=== PATIENT | female | born 1975 | race Hispanic/Latino ===

== ENCOUNTER → 2017-04-22 | Outpatient (CLI) | payer OTHER ==
[~2017-04-22] MED LIST: ACET-66 PO; IBUP-2077 PO; METF500T6 PO; TRAN650T5 PO
== END | disposition home or self-care (01) ==
LOC: RAH 11:20
PROVIDERS: ATTEND Obstetrics & Gynecology
DX: D39.11 Neoplasm of uncertain behavior of right ovary (principal); N83.201 Unspecified ovarian cyst, right side
CPT/HCPCS: 76856

== ENCOUNTER 2017-04-24 10:24 | Inpatient (IN) | payer OTHER ==
[2017-04-24] VITALS (21 sets, daily range): BP systolic 92–126; BP diastolic 51–73
[~2017-04-24] VITALS: Ht 165.1 cm; Wt 84.4 kg
[~2017-04-24 10:24] MED LIST changes: -ACET-66 PO
[2017-04-24] MEDS ORDERED: CEFAZOLIN SODIUM 1 GM VIAL ONE (10:45)
[2017-04-24] MEDS ORDERED: CEFAZOLIN 2GM / 50 ML 50 ML IV SCH (11:00)
[2017-04-24] MEDS: CALDOLOR 800MG+NS 250ML 250 ML IV SCH ×3 (11:00→20:17)
[2017-04-24] MEDS: WATER FOR INJECTION,STERILE 20 ML VIAL IJ SCH ×2 (11:15→18:40)
[2017-04-24] MEDS ORDERED: MORPHINE SULFATE 2 MG/ML 1ML SYG IVP ONE (11:15)
[2017-04-24] MEDS: CEFAZOLIN SODIUM 1 GM VIAL IVP SCH ×3 (11:15→18:38)
[2017-04-24 11:20] LABS: HEMATOCRIT 40.3 % (36-48); MEAN CORPUSCULAR HEMOGLOBIN 29.7 pg (27.0-33.0); MEAN CORPUSCULAR HGB CONC 34.1 g/dL (32.0-36.0); MEAN CORPUSCULAR VOLUME 86.9 fL (79-99); PLATELET COUNT (AUTO) 221 K/uL (130-400); RED BLOOD CELL COUNT(AUTO) 4.64 MIL/uL (4.00-5.50); RED CELL DISTRIBUTION WIDTH 13.7 % (11.0-15.5); WHITE BLOOD COUNT (AUTO) 11.3 K/uL (4.8-10.8)
[2017-04-24] MEDS ORDERED: LACTATED RINGERS 1000ML 1,000 ML IV ONE (11:43)
[2017-04-24] MEDS ORDERED: NEOSTIGMINE 5MG/5ML SYR IV ONE (11:49)
[2017-04-24] MEDS ORDERED: LIDOCAINE HCL 2% JELLY 5 ML ONE (11:49)
[2017-04-24] MEDS ORDERED: ROCURONIUM BROMIDE 10MG/1ML 5ML VL ONE (11:49)
[2017-04-24] MEDS ORDERED: PROPOFOL 10 MG/ML 20ML VIAL IV ONE ×2 (11:49)
[2017-04-24] MEDS ORDERED: GLYCOPYRROLATE 0.2 MG/ML 5 ML VIAL ONE (11:49)
[2017-04-24] MEDS ORDERED: LIDOCAINE HCL 4% LTA SOL 4 ML VIAL ONE (11:49)
[2017-04-24] MEDS ORDERED: LIDOCAINE PF 2% 5ML ABBOJECT ONE (11:49)
[2017-04-24] MEDS ORDERED: DEXAMETHASONE SOD PHOSPHATE 10MG/ML 1ML VIAL ONE (11:49)
[2017-04-24] MEDS ORDERED: PHENYLEPHRINE HCL 10 MG/ML 1ML VIAL IV ONE (11:49)
[2017-04-24] MEDS ORDERED: LIDOCAINE HCL-MPF 1% 5ML AMP IJ ONE (11:49)
[2017-04-24] MEDS ORDERED: ONDANSETRON HCL 4 MG/2 ML VIAL ONE (11:49)
[2017-04-24] MEDS ORDERED: FENTANYL CITRATE PF 50 MCG/1 ML 5ML AMP IV ONE (11:50)
[2017-04-24] MEDS ORDERED: MIDAZOLAM HCL 1 MG/ML 2ML VIAL ONE (11:50)
[2017-04-24] MEDS ORDERED: OCTYL 2-CYANOACRYLATE 1 EACH TP ONE (13:08)
[2017-04-24] MEDS ORDERED: ACET-66 PO (14:05)
[2017-04-24] MEDS ORDERED: ONDANSETRON HCL 4 MG/2 ML VIAL IVP PRN (15:15)
[2017-04-24] MEDS: HYDROCODONE/ACETAMINOPHEN 5/325 MG TAB PO PRN (16:54)
[2017-04-24] MEDS ORDERED: HYDROCODONE/ACETAMINOPHEN 5/325 MG TAB PO PRN (17:00)
[2017-04-24] MEDS ORDERED: MEPERIDINE-PF 50 MG/ML SYG IM PRN (17:00)
[2017-04-24] MEDS ORDERED: PROMETHAZINE HCL 25 MG/ML 1ML AMPULE IM PRN (17:00)
[2017-04-24] MEDS ORDERED: SODIUM CHLORIDE 0.9% 1000ML 1,000 ML IV SCH (17:30)
[2017-04-24] MEDS: METFORMIN HCL 500 MG TABLET PO SCH (18:28)
[2017-04-25 03:35] VITALS: BP 129/67
[2017-04-25] MEDS: HYDROCODONE/ACETAMINOPHEN 5/325 MG TAB PO PRN (03:37)
[2017-04-25] MEDS: CALDOLOR 800MG+NS 250ML 250 ML IV SCH (04:14)
[2017-04-25 07:21] VITALS: BP 107/47
[2017-04-25] MEDS: METFORMIN HCL 500 MG TABLET PO SCH (08:29)
== END 2017-04-25 10:40 | disposition home or self-care (01) | DRG 743 ==
LOC: WSH 10:41
PROVIDERS: ADMIT Obstetrics & Gynecology; ATTEND Obstetrics & Gynecology
PROC: 0UT04ZZ Resection of Right Ovary, Percutaneous Endoscopic Approach (ICD-10-PCS; principal; 2017-04-24 12:31)
PROC: 0UT54ZZ Resection of Right Fallopian Tube, Percutaneous Endoscopic Approach (ICD-10-PCS; 2017-04-24 12:31)
DX: N83.201 Unspecified ovarian cyst, right side (principal); N83.8 Other noninflammatory disorders of ovary, fallopian tube and broad ligament
CPT/HCPCS: 36415; 81025; 82948; 85027; 86850; 86900; 86901; 88305; A4344; J0690; J1100; J1741; J2001; J2250; J2370; J2405; J2704; J2710; J3010; J3490; J7030; J7120

== ENCOUNTER → 2017-07-25 | Outpatient (CLI) | payer OTHER ==
[~2017-07-25] MED LIST changes: +ACET-66 PO; -IBUP-2077 PO; -TRAN650T5 PO
[2017-07-25 08:32] LABS: BASOPHILS % (AUTO) 0.5 % (0.0-5.0); EOSINOPHILS % (AUTO) 2.4 % (0.0-8.0); HEMATOCRIT 38.3 % (36-48); LYMPHOCYTES % (AUTO) 54.4 % (21.0-51.0); MEAN CORPUSCULAR HEMOGLOBIN 30.3 pg (27.0-33.0); MEAN CORPUSCULAR HGB CONC 34.3 g/dL (32.0-36.0); MEAN CORPUSCULAR VOLUME 88.5 fL (79-99); MONOCYTES % (AUTO) 5.5 % (3.0-13.0); NEUTROPHILS % (AUTO) 37.2 % (40.0-77.0); PLATELET COUNT (AUTO) 209 K/uL (130-400); RED BLOOD CELL COUNT(AUTO) 4.32 MIL/uL (4.00-5.50); RED CELL DISTRIBUTION WIDTH 13.9 % (11.0-15.5)
[2017-07-25 08:54] LABS: HEMOGLOBIN A1C 5.6 % (4.0-6.0)
[2017-07-25 08:59] LABS: ALBUMIN 3.4 g/dL (3.5-5.0); BILIRUBIN,TOTAL 0.5 mg/dL (0.2-1.0); CREATININE 0.6 mg/dL (0.5-1.5); POTASSIUM 3.5 mmol/L (3.5-5.1); THYROID STIMULATING HORMONE 1.03 uIU/mL (0.36-3.74)
== END | disposition home or self-care (01) ==
LOC: LAB 07:39
PROVIDERS: ATTEND Internal Medicine Nephrology
DX: I10 Essential (primary) hypertension (principal); E11.9 Type 2 diabetes mellitus without complications; E78.1 Pure hyperglyceridemia; D64.9 Anemia, unspecified
CPT/HCPCS: 36415; 80053; 80061; 83036; 84443; 85025

== ENCOUNTER → 2019-01-29 | Outpatient (CLI) | payer OTHER ==
[~2019-01-29] MED LIST changes: +METF-444 PO; -METF500T6 PO
[2019-01-29 09:28] LABS: BASOPHILS % (AUTO) 0.7 % (0.0-5.0); HEMATOCRIT 41.8 % (36-48); LYMPHOCYTES % (AUTO) 38.5 % (21.0-51.0); MEAN CORPUSCULAR HEMOGLOBIN 31.4 pg (27.0-33.0); MEAN CORPUSCULAR HGB CONC 34.4 g/dL (32.0-36.0); MEAN CORPUSCULAR VOLUME 91.2 fL (79-99); MONOCYTES % (AUTO) 6.3 % (3.0-13.0); NEUTROPHILS % (AUTO) 52.5 % (40.0-77.0); NUCLEATED RED BLOOD CELLS 0.1 % (0.0-0.19); PLATELET COUNT (AUTO) 165 K/uL (130-400); RED BLOOD CELL COUNT(AUTO) 4.58 MIL/uL (4.00-5.50); RED CELL DISTRIBUTION WIDTH 13.7 % (11.0-15.5); WHITE BLOOD COUNT (AUTO) 4.9 K/uL (4.8-10.8)
[2019-01-29 09:42] LABS: HEMOGLOBIN A1C 5.6 % (4.0-6.0)
[2019-01-29 09:47] LABS: ALBUMIN 3.4 g/dL (3.5-5.0); BILIRUBIN,TOTAL 0.7 mg/dL (0.2-1.0); CREATININE 0.7 mg/dL (0.5-1.5); POTASSIUM 4.3 mmol/L (3.5-5.1); THYROID STIMULATING HORMONE 0.58 uIU/mL (0.36-3.74); TOTAL PROTEIN, SERUM 6.9 g/dL (6.0-8.3)
== END | disposition home or self-care (01) ==
LOC: LAB 08:55
PROVIDERS: ATTEND Internal Medicine Nephrology
DX: D64.9 Anemia, unspecified (principal); E11.9 Type 2 diabetes mellitus without complications; E78.1 Pure hyperglyceridemia; I10 Essential (primary) hypertension
CPT/HCPCS: 36415; 80053; 80061; 82043; 83036; 84443; 85025

== ENCOUNTER → 2020-07-27 | Outpatient (CLI) | payer OTHER ==
[2020-07-27 09:26] LABS: BASOPHILS % (AUTO) 0.5 % (0.0-5.0); HEMATOCRIT 38.7 % (36-48); LYMPHOCYTES % (AUTO) 42.6 % (21.0-51.0); MEAN CORPUSCULAR HEMOGLOBIN 30.3 pg (27.0-33.0); MEAN CORPUSCULAR HGB CONC 33.6 g/dL (32.0-36.0); MEAN CORPUSCULAR VOLUME 90.2 fL (79-99); MONOCYTES % (AUTO) 6.7 % (3.0-13.0); NEUTROPHILS % (AUTO) 47.8 % (40.0-77.0); PLATELET COUNT (AUTO) 172 K/uL (130-400); RED BLOOD CELL COUNT(AUTO) 4.29 MIL/uL (4.00-5.50); RED CELL DISTRIBUTION WIDTH 13.2 % (11.0-15.5); WHITE BLOOD COUNT (AUTO) 5.5 K/uL (4.8-10.8)
[2020-07-27 09:39] LABS: HEMOGLOBIN A1C 5.6 % (4.0-6.0)
[2020-07-27 09:49] LABS: ALBUMIN 3.3 g/dL (3.5-5.0); BILIRUBIN,TOTAL 0.6 mg/dL (0.2-1.0); CREATININE 0.7 mg/dL (0.5-1.5); THYROID STIMULATING HORMONE 0.34 uIU/mL (0.36-3.74); TOTAL PROTEIN, SERUM 6.7 g/dL (6.0-8.3)
== END | disposition home or self-care (01) ==
LOC: LAB 08:52
PROVIDERS: ATTEND Internal Medicine Nephrology
DX: E11.9 Type 2 diabetes mellitus without complications (principal); R53.83 Other fatigue
CPT/HCPCS: 36415; 80053; 80061; 83036; 84443; 85025

== ENCOUNTER → 2020-08-25 | Outpatient (CLI) | payer OTHER | END | disposition home or self-care (01) | LOC: RAH 07:50 | PROVIDERS: ATTEND Internal Medicine Nephrology | DX: Z12.31 Encounter for screening mammogram for malignant neoplasm of breast (principal); R94.5 Abnormal results of liver function studies; R16.0 Hepatomegaly, not elsewhere classified; N28.1 Cyst of kidney, acquired; K80.20 Calculus of gallbladder without cholecystitis without obstruction; Z00.01 Encounter for general adult medical examination with abnormal findings | CPT/HCPCS: 36415; 76705; 77067; 84439; 84481 ==